=== PATIENT | female | born 1950 | race Caucasian/White ===

== ENCOUNTER 2023-02-28 13:26 | Emergency (ER) | payer OTHER, MEDICARE ==
[~2023-02-28] VITALS: Ht 170.2 cm; Wt 60.3 kg
[2023-02-28] MEDS ORDERED: ACETAMINOPHEN 325 MG TAB PO ONE (13:45)
[2023-02-28 15:30] VITALS: O2SAT 100
== END 2023-02-28 16:45 | disposition home or self-care (01) ==
LOC: ER 13:33
DX: S00.83XA Contusion of other part of head, initial encounter (principal); W01.0XXA Fall on same level from slipping, tripping and stumbling without subsequent striking against object, initial encounter; Y93.01 Activity, walking, marching and hiking; Y92.89 Other specified places as the place of occurrence of the external cause; G40.909 Epilepsy, unspecified, not intractable, without status epilepticus; N80.9 Endometriosis, unspecified; F17.210 Nicotine dependence, cigarettes, uncomplicated
CPT/HCPCS: 70450; 72125; 99284

== ENCOUNTER 2023-03-05 13:09 | Emergency (ER) | payer OTHER, MEDICARE ==
[~2023-03-05] VITALS: Ht 170.2 cm; Wt 60.3 kg
[2023-03-05 13:30] VITALS: O2SAT 99
== END 2023-03-05 18:34 ==
LOC: ER 13:21
DX: S00.83XA Contusion of other part of head, initial encounter (principal); W18.39XA Other fall on same level, initial encounter; Y92.89 Other specified places as the place of occurrence of the external cause; G40.909 Epilepsy, unspecified, not intractable, without status epilepticus
CPT/HCPCS: 70450; 72125; 72192; 99284